=== PATIENT | female | born 2000 | race Caucasian/White ===

== ENCOUNTER 2022-12-26 09:30 | Emergency (ER) | payer OTHER, SELFPAY ==
[2022-12-26 09:42] VITALS: BP 120/86; PULSE 62; RESP 20; TEMP 37.2; O2SAT 100; BMI 20.2
--- NOTE | 2022-12-26 10:56 | ED.GENADUL1 ---
HPI - General Adult General Chief complaint: Abdominal Pain Stated complaint: ABDOMINAL PAIN Time Seen by Provider: 12/26/22 10:53 Source: patient Mode of arrival: walk-in Limitations: no limitations History of Present Illness HPI narrative: Patient is a 22-year-old female who is presenting to the Emergency Room for 4 days in a row for cyclic nausea and vomiting secondary to marijuana use. This is patient's 4th visit in 4 days. Patient has been to the Emergency Room in [place] from [facility] the past 3 days. Patient had one visit for pelvic pain, vomiting, and bad menses cramps. Patient had a pelvic ultrasound and a CT of the abdomen and pelvis during her Emergency Room visits in [place]. Pelvic ultrasound showed no evidence of torsion at this time, no acute abnormality. CT report Showed no acute abnormality, trace free fluid in the pelvic vault. Patient is presenting to the Emergency Room this morning secondary to intractable nausea, vomiting, and midepigastric discomfort. Patient smokes marijuana, patient says the last time she smoked marijuana was 6 days ago. Patient's boyfriend is at bedside as well, he smells of marijuana as does the patient. Patient has been slightly lightheaded and dizzy, no chest pain or shortness of breath. Patient's had interrmittent episodes of hyperventilating secondary to pain, nausea and vomiting. Patient denies any other illicit drug use. Patient is currently on her menses. This patient. No other acute complaints. . All systems are negative except as noted/marked. All systems reviewed and otherwise negative. . Nurses note and vital signs reviewed and patient is not hypoxic. General: The patient appears well and in no apparent distress. Patient is resting comfortably on cart. Patient is not toxic, lethargic, or listless. Skin: Warm, dry, no pallor noted. There is no rash noted. No petechiae, purpura. Head: Normocephalic, atraumatic Eye: Normal conjunctiva, no drainage, EOMI. PERRL Ears, Nose, Mouth, and Throat: oral mucosa is moist. Nares patent. Mouth without vesicles. Cardiovascular: Regular Rate and Rhythm, no murmur, gallop, rub Respiratory: Patient is in no distress, no accessory muscle use, lungs are clear to auscultation, no wheezing, rales or rhonchi Back: non-tender, no CVA tenderness bilaterally to percussion. No CT LS midline pain GI: soft, Mild midepigastric tenderness to palpation, abdomen is soft, no peritoneal signs, no flank pain bilateral, otherwise no tenderness to palpation, no masses appreciated. No rebound, guarding, or rigidity noted. No flank pain bilateral, No distention Musculoskeletal: Patient has full range of motion of all of the extremities, no motor, sensory, or focal neurological deficits Neurological: A&O x3, normal speech Psychiatric: Cooperative Related Data Home Medications Medication Instructions Recorded Confirmed capsaicin 0.025 % topical cream 1 applic topical BID 12/26/22 12/26/22 ibuprofen 600 mg tablet 600 mg PO Q8H 12/26/22 12/26/22 ondansetron 4 mg disintegrating 4 mg PO Q8H PRN nausea and vomiting 12/26/22 12/26/22 tablet promethazine 25 mg tablet 25 mg PO Q6H PRN nausea and 12/26/22 12/26/22 vomiting tramadol 50 mg tablet 50 mg PO Q6H 12/26/22 12/26/22 Previous Rx's Medication Instructions Recorded promethazine 25 mg rectal 25 mg ID Q6H PRN nausea and 12/26/22 suppository vomiting #6 ea Allergies Allergy/AdvReac Type Severity Reaction Status Date / Time No Known Drug Allergies Allergy Verified 12/26/22 09:49 PFSH PFSH Social History Smoking status: Light tobacco smoker Exam Constitutional Vital Signs, click to edit/add: Last Vital Signs Temp 98.9 F 12/26/22 09:42 Pulse 56 L 12/26/22 12:22 Resp 16 12/26/22 12:22 BP 111/56 12/26/22 12:22 Pulse Ox 98 12/26/22 12:22 O2 Del Method Room Air 12/26/22 12:22 Course Vital Signs Vital signs: Vital Signs Temperature 98.9 F 12/26/22 09:42 Pulse Rate 62 12/26/22 09:42 Respiratory Rate 20 12/26/22 09:42 Blood Pressure 120/86 12/26/22 09:42 Pulse Oximetry 100 12/26/22 09:42 Oxygen Delivery Method Room Air 12/26/22 09:42 Temperature 98.9 F 12/26/22 09:42 Pulse Rate 56 L 08/02/23 12:22 Respiratory Rate 16 12/26/22 12:22 Blood Pressure 111/56 12/26/22 12:22 Pulse Oximetry 98 12/26/22 12:22 Oxygen Delivery Method Room Air 12/26/22 12:22 Medical Decision Making MDM Narrative Medical decision making narrative: Patient was given Compazine and Zofran initially to help patient felt better, faster and also help increase fluids. There was a delay in order secondary to as waiting for paperwork to come across from [facility] Emergency Room to see what they have done a not doing, as also waiting to see if patient was going to have any vomiting in the Emergency Room which she did have a few episodes of bilious vomiting so IV, lab work, fluids and additional medication were initiated. Patient does feel better to IV fluids. Patient was given oral potassium tablet. Patient had education on marijuana abuse and cyclic nausea and vomiting. Patient will follow-up with PCP. Patient was sent home medications of Phenergan suppositories. Patient has medication of Bentyl and other medications sitting at the [facility] pharmacy that she has not picked up yet for unknown reason. Patient is intermittently using nausea medicine at home with little relief. Patient understands she needs to use her medication at home as prescribed to help prevent future return visits to the Emergency Room if possible. Patient understands she can return to Emergency Room anytime she like to, but she has multiple medications at home and manage her pain at home and manage her nausea vomiting. Patient and boyfriend were educated at length on stopping marijuana abuse. No questions at discharge. Lab Data Lab results reviewed: Yes I reviewed the patient's lab results Labs: Lab Results 12/26/22 Range/Units 10:56 WBC 5.6 (4.0-11.0) 10^3/uL RBC 4.68 (4.20-5.40) 10^6/uL Hgb 14.5 (12.0-16.0) g/dL Hct 39.7 (36.0-48.0) % MCV 84.8 (81.0-99.0) fL MCH 31.0 (26.7-34.0) pg MCHC 36.5 H (29.9-35.2) g/dL RDW 11.9 (11.0-15.0) % Plt Count 306 (150-450) 10^3/uL MPV 10.0 (9.5-13.5) fL Neut % (Auto) 78.9 H (43.0-75.0) % Lymph % (Auto) 14.3 L (20.5-60.0) % [place] % (Auto) 5.9 (1.7-12.0) % Eos % (Auto) 0.2 L (0.9-7.0) % Baso % (Auto) 0.5 (0.2-2.0) % Neut # (Auto) 4.4 (1.4-6.5) 10^3/uL Lymph # (Auto) 0.8 L (1.2-3.8) 10^3/uL [place] # (Auto) 0.3 (0.3-0.8) 10^3/uL Eos # (Auto) 0.0 (0.0-0.7) 10^3/uL Baso # (Auto) 0.0 (0.0-0.1) 10^3/uL Abs Immat Gran (auto) 0.01 (0.00-0.03) 10^3/uL Imm/Tot Granulo (auto) 0.2 (0.0-0.5) % Sodium 138 (136-145) mmol/L Potassium 3.0 L (3.5-5.1) mmol/L Chloride 101 (98-107) mmol/L Carbon Dioxide 26.0 (21.0-32.0) mmol/L Anion Gap 14.0 BUN 7.0 (7.0-18.0) mg/dL Creatinine 0.93 (0.55-1.02) mg/dL Est GFR ( Amer) >60 (>=60) Est GFR (Non-Af Amer) >60 (>=60) BUN/Creatinine Ratio 7.5 Glucose 113 H (74-106) mg/dL Lactate 1.4 (0.4-2.0) mmol/L Calcium 8.8 (8.5-10.1) mg/dL Total Bilirubin 1.4 H (0.2-1.0) mg/dL AST 22 (15-37) U/L ALT 37 (14-59) U/L Alkaline Phosphatase 51 (46-116) U/L Total Protein 7.8 (6.4-8.2) g/dL Albumin 4.8 (3.4-5.0) g/dL Globulin 3.0 g/dL Albumin/Globulin Ratio 1.6 Lipase 92.0 (73.0-393.0) U/L Serum HCG, Qual Negative (NEGATIVE) Patient's potassium was 3.0. Patient was given a oral potassium tablet that she tolerated well without difficulty. Discharge Plan Discharge Chief Complaint: Abdominal Pain Clinical Impression: Marijuana abuse, Cyclical vomiting with nausea, Mild dehydration, Hypokalemia Patient Disposition: Home, Self-Care Condition: Good Prescriptions / Home Meds: New promethazine 25 mg suppository 25 mg ID Q6H PRN (Reason: nausea and vomiting) Qty: 6 0RF No Action ibuprofen 600 mg tablet 600 mg PO Q8H ondansetron 4 mg tablet,disintegrating 4 mg PO Q8H PRN (Reason: nausea and vomiting) promethazine 25 mg tablet 25 mg PO Q6H PRN (Reason: nausea and vomiting) tramadol 50 mg tablet 50 mg PO Q6H capsaicin 0.025 % cream 1 applic TOPICAL BID Instructions: Dehydration (ED), Acute Nausea and Vomiting (ED), Cannabis Use Disorder (ED), Cyclic Vomiting Syndrome (ED) Additional Instructions: We have talked at length about cyclic nausea and vomiting, most likely secondary to marijuana smoking/abuse. This is her 4th Emergency Room visit in 4 days. Extensive testing has been reviewed from [facility]. You need to picker tender helper the prescriptions that have been prescribed to him from [facility], at [facility]. He'll be given Phenergan suppositories as well. Stop smoking marijuana, and his symptoms should resolve. gastrointestinal doctor has been referred to as well, need to follow up with them. Here potassium was 3.0,Low-normal potassium is 3.5. Take multivitamins daily, increased and Gatorade Stand Alone Forms: Portal Instructions Referrals: Physician,Non-Staff, MD [Primary Care Provider] - 1 week Discharge Date/Time: 12/26/22 13:33
[2022-12-26] MEDS: KETOROLAC TROMETHAMINE 30 MG/ML VIAL IVP (11:11)
[2022-12-26] MEDS: 0.9 % SODIUM CHLORIDE 1,000 ML 999 ML IV (11:12)
[2022-12-26] MEDS: DICYCLOMINE HCL 20 MG/2 ML VIAL IM (11:12)
[2022-12-26] MEDS: ONDANSETRON PF 4 MG/2 ML VIAL IV (11:12)
[2022-12-26 11:18] LABS: Basophils Percent Auto 0.5 % (0.2-2.0); Eosinophils Percent Auto 0.2 % (0.9-7.0); Hematocrit 39.7 % (36.0-48.0); Hemoglobin 14.5 g/dL (12.0-16.0); Immature Granulocytes Abs Auto 0.01 10^3/uL (0.00-0.03); Immature Granulocytes Pct Auto 0.2 % (0.0-0.5); Lymphocytes Absolute Auto 0.8 10^3/uL (1.2-3.8); Lymphocytes Percent Auto 14.3 % (20.5-60.0); Mean Corpuscular HGB Conc 36.5 g/dL (29.9-35.2); Mean Corpuscular Volume 84.8 fL (81.0-99.0); Monocytes Absolute Auto 0.3 10^3/uL (0.3-0.8); Monocytes Percent Auto 5.9 % (1.7-12.0); Neutrophils Absolute Auto 4.4 10^3/uL (1.4-6.5); Neutrophils Percent Auto 78.9 % (43.0-75.0); Platelet Count 306 10^3/uL (150-450); Red Blood Count 4.68 10^6/uL (4.20-5.40); Red Cell Distribution Width 11.9 % (11.0-15.0); White Blood Count 5.6 10^3/uL (4.0-11.0)
[2022-12-26] MEDS: PROCHLORPERAZINE 10 MG/2 ML VIAL IV (11:22)
[2022-12-26 11:26] LABS: Alanine Aminotransferase 37 U/L (14-59); Albumin Globulin Ratio 1.6; Albumin Level 4.8 g/dL (3.4-5.0); Alkaline Phosphatase 51 U/L (46-116); Aspartate Amino Transferase 22 U/L (15-37); BUN Creatinine Ratio 7.5; Bilirubin Total 1.4 mg/dL (0.2-1.0); Calcium 8.8 mg/dL (8.5-10.1); Chloride 101 mmol/L (98-107); Estimated GFR (African America >60 (>=60); Estimated GFR (Non-African Ame >60 (>=60); Glucose 113 mg/dL (74-106); Sodium 138 mmol/L (136-145); Total Protein 7.8 g/dL (6.4-8.2)
[2022-12-26 11:29] LABS: Lactate/Lactic Acid 1.4 mmol/L (0.4-2.0)
[2022-12-26] MEDS: POTASSIUM CHLORIDE 10 MEQ ER TABLET 40 MEQ PO (12:12)
[2022-12-26 12:19] LABS: HCG Qualitative NEGATIVE (NEGATIVE)
[2022-12-26 12:22] VITALS: BP 111/56; PULSE 56; RESP 16; O2SAT 98
[2022-12-26] MEDS: lidocaine HCL 15 ML, MAG HYDROX/ALUMINUM HYD/SIMETH 30 ML, HYOSCYAMINE SULFATE 0.25 MG PO (13:23)
== END 2022-12-26 13:33 | disposition home or self-care (01) ==
PROVIDERS: Emergency Provider Emergency Medicine
DX: R11.15 Cyclical vomiting syndrome unrelated to migraine (principal); F12.10 Cannabis abuse, uncomplicated; R11.0 Nausea; E86.0 Dehydration; E87.6 Hypokalemia; Z79.899 Other long term (current) drug therapy; F17.210 Nicotine dependence, cigarettes, uncomplicated
CPT/HCPCS: 36415; 80053; 83605; 83690; 84702; 84703; 85025; 96361; 96372; 96374; 96375; 99284; J0500

== ENCOUNTER 2023-06-16 16:18 | Emergency (ER) | payer OTHER, SELFPAY ==
[2023-06-16 16:31] VITALS: BP 117/71; PULSE 56; RESP 18; TEMP 36.7; O2SAT 97; BMI 21.6
--- NOTE | 2023-06-16 16:47 | ED.ABDPAIN1 ---
HPI - Abdominal Pain General Chief Complaint: Abdominal Pain Stated Complaint: Abdominal Pain Time Seen by Provider: 06/16/23 16:38 Source: patient Mode of arrival: walk-in Limitations: no limitations History of Present Illness HPI narrative: 23-year-old female presents to the emergency department for nausea vomiting and abdominal pain. It started this morning. No fever. LMP is now. The pain is moderate to severe and continuous. Related Data Allergies Allergy/AdvReac Type Severity Reaction Status Date / Time No Known Drug Allergies Allergy Verified 06/16/23 16:35 Review of Systems ROS Narrative A ten point review of systems is negative except as noted above. PFSH PFSH Social History Smoking status: Never smoker Exam Narrative Exam Narrative: Nurses note and vital signs reviewed and patient is not hypoxic. General: The patient appears uncomfortable Skin: Warm, dry, pallor noted. There is no rash noted. Head: Normocephalic, atraumatic Eye: Normal conjunctiva, no drainage Ears, Nose, Mouth, and Throat: oral mucosa is moist. Nares patent. Cardiovascular: Regular Rate and Rhythm Respiratory: Patient is in no distress, no accessory muscle use, lungs are clear to auscultation, no wheezing, rales or rhonchi Back: non-tender, no CVA tenderness bilaterally to percussion. GI: mild diffuse tenderness distention Musculoskeletal: The patient has no evidence of calf tenderness, no pitting edema, symmetrical pulses noted bilaterally Neurological: A&O, normal speech Psychiatric: Cooperative Constitutional Vital Signs, click to edit/add: Last Vital Signs Temp 98.0 F 06/16/23 16:31 Pulse 87 06/16/23 18:20 Resp 20 06/16/23 18:20 BP 114/73 06/16/23 18:20 Pulse Ox 99 06/16/23 18:20 O2 Del Method Room Air 06/16/23 16:31 Course Vital Signs Vital signs: Vital Signs Temperature 98.0 F 06/16/23 16:31 Pulse Rate 56 L 06/16/23 16:31 Respiratory Rate 18 06/16/23 16:31 Blood Pressure 117/71 06/16/23 16:31 Pulse Oximetry 97 06/16/23 16:31 Oxygen Delivery Method Room Air 06/16/23 16:31 Temperature 98.0 F 06/16/23 16:31 Pulse Rate 87 06/16/23 18:20 Respiratory Rate 20 06/16/23 18:20 Blood Pressure 114/73 06/16/23 18:20 Pulse Oximetry 99 06/16/23 18:20 Oxygen Delivery Method Room Air 06/16/23 16:31 MDM - Abdominal Pain MDM Narrative Medical decision making narrative: WBC is nineteen thousand. CT is ordered and pending and the patient is signed out to Dr. Rogers. Differential Diagnosis Differential diagnosis: Likely abdominal pain, acute appendicitis, constipation, gastroenteritis and small bowel obstruction Lab Data Labs: Lab Results 06/16/23 06/16/23 Range/Units 16:35 18:00 WBC 19.7 H (4.0-11.0) 10^3/uL RBC 4.42 (4.20-5.40) 10^6/uL Hgb 13.5 (12.0-16.0) g/dL Hct 38.2 (36.0-48.0) % MCV 86.4 (81.0-99.0) fL MCH 30.5 (26.7-34.0) pg MCHC 35.3 H (29.9-35.2) g/dL RDW 11.6 (11.0-15.0) % Plt Count 357 (150-450) 10^3/uL MPV 10.9 (9.5-13.5) fL Seg Neuts % (Manual) 88.0 Band Neutrophils % 4.0 (0-5) % Lymphocytes % (Manual) 2.0 L (20.5-60.0) % Monocytes % (Manual) 6.0 (1.7-12.0) % Eosinophils % (Manual) 0.0 L (0.9-7.0) % Basophils % (Manual) 0.0 L (0.2-2.0) % Neutrophils # (Manual) 17.33 H (1.4-6.5) 10^3/uL Band Neutrophils # 0.8 H (0.0-0.3) 10^3/uL Lymphocytes # (Manual) 0.39 L (1.20-3.80) 10^3/uL Monocytes # (Manual) 1.18 H (0.30-0.80) 10^3/uL Eosinophils # (Manual) 0.00 (0.00-0.70) 10^3/uL Basophils # (Manual) 0.00 (0.00-0.10) 10^3/uL Sodium 141 (136-145) mmol/L Potassium 3.1 L (3.5-5.1) mmol/L Chloride 104 (98-107) mmol/L Carbon Dioxide 17.2 L (21.0-32.0) mmol/L Anion Gap 22.9 BUN 10.0 (7.0-18.0) mg/dL Creatinine 1.42 H (0.55-1.02) mg/dL Est GFR ( Amer) 56 L (>=60) Est GFR (Non-Af Amer) 46 L (>=60) BUN/Creatinine Ratio 7.0 Glucose 182 H (74-106) mg/dL Calcium 9.5 (8.5-10.1) mg/dL Serum HCG, Qual Negative (NEGATIVE) Urine Color Lt. yellow (YELLOW) Urine Clarity Clear (CLEAR) Urine pH 6.0 (5.0-9.0) Ur Specific [place] 1.020 (1.005-1.025) Urine Protein Negative (NEG/TRACE) mg/dL Urine Glucose (UA) 100 A (NEGATIVE) mg/dL Urine Ketones >=80 A (NEGATIVE) mg/dL Urine Occult Blood Large A (NEGATIVE) Urine Nitrite Negative (NEGATIVE) Urine Bilirubin Negative (NEGATIVE) Urine Urobilinogen 0.2 (0.2-1.0) EU/dL Ur Leukocyte Esterase Negative (NEGATIVE) Urine RBC 5-10 A (0-2) #/HPF Urine WBC None seen (NONE SEEN) #/HPF Ur Squamous Epith Cells Few A (NONE/RARE) #/LPF Urine Crystals None seen (None Seen) #/HPF Urine Bacteria Trace A (NONE SEEN) #/HPF Urine Casts None seen (NONE SEEN) #/LPF Urine Mucus None seen (NONE SEEN) Ur Culture Indicated? No Discharge Plan Discharge Patient Disposition: Still a Patient
[2023-06-16 16:52] LABS: Hematocrit 38.2 % (36.0-48.0); Hemoglobin 13.5 g/dL (12.0-16.0); Mean Corpuscular HGB Conc 35.3 g/dL (29.9-35.2); Mean Corpuscular Hemoglobin 30.5 pg (26.7-34.0); Mean Corpuscular Volume 86.4 fL (81.0-99.0); Mean Platelet Volume 10.9 fL (9.5-13.5); Platelet Count 357 10^3/uL (150-450); Red Blood Count 4.42 10^6/uL (4.20-5.40); Red Cell Distribution Width 11.6 % (11.0-15.0); White Blood Count 19.7 10^3/uL (4.0-11.0)
[2023-06-16 17:00] LABS: Anion Gap 22.9; Calcium 9.5 mg/dL (8.5-10.1); Carbon Dioxide 17.2 mmol/L (21.0-32.0); Chloride 104 mmol/L (98-107); Estimated GFR (African America 56 (>=60); Estimated GFR (Non-African Ame 46 (>=60); Glucose 182 mg/dL (74-106); HCG Qualitative NEGATIVE (NEGATIVE); Potassium 3.1 mmol/L (3.5-5.1); Sodium 141 mmol/L (136-145)
[2023-06-16] MEDS: 0.9 % SODIUM CHLORIDE 1,000 ML 1000 ML IV (17:01)
[2023-06-16] MEDS: ONDANSETRON PF 4 MG/2 ML VIAL IV (17:01)
[2023-06-16 17:37] LABS: Band Neutrophils Absolute 0.8 10^3/uL (0.0-0.3); Lymphocytes Absolute Manual 0.39 10^3/uL (1.20-3.80); Monocytes Absolute Manual 1.18 10^3/uL (0.30-0.80); Segmented Neut Absolute Manual 17.33 10^3/uL (1.4-6.5)
[2023-06-16] MEDS: KETOROLAC TROMETHAMINE 30 MG/ML VIAL IVP (18:03)
--- NOTE | 2023-06-16 18:16 | CT_ITS ---
The [address] [address] Patient Name: SAMIR LUCERO MRN: [id number] date: 2000 Sex: F Assigned Patient Location: ER Current Patient Location: ER Accession/Order Number: [id number] Exam Date: 06/16/2023 18:30 Report Date: 06/16/2023 19:14 At the request of: KEITH CROWLEY Procedure: CT abdomen pelvis w con EXAM: CT abdomen pelvis w con HISTORY: generalized abdominal pain, WBC 19 . Nausea and vomiting. COMPARISON: None. TECHNIQUE: Enhanced helical acquisition obtained through the abdomen and the pelvis. FINDINGS: The visualized lung bases and pleural spaces are clear. Unremarkable gallbladder. No significant biliary ductal dilatation. The liver, spleen, pancreas, adrenal glands and the kidneys are unremarkable. No enlarged lymph nodes within the abdomen or the pelvis. Trace free fluid within the pelvis, likely physiologic. Normal appendix. CT/CT abdomen pelvis w con IMPRESSION: 1. Normal appendix. No inflammatory changes within the abdomen or the pelvis. 2. Trace free fluid within the pelvic cul-de-sac, likely physiologic. Electronically authenticated by: KAREN SIERRA Date: 06/16/2023 19:14
[2023-06-16 18:20] VITALS: BP 114/73; PULSE 87; RESP 20; O2SAT 99
[2023-06-16] MEDS: DICYCLOMINE HCL 20 MG/2 ML VIAL IM (18:30)
[2023-06-16 18:35] LABS: Bilirubin Urine NEGATIVE (NEGATIVE); Blood Urine LARGE (NEGATIVE); Clarity Urine CLEAR (CLEAR); Color Urine LT. YELLOW (YELLOW); Glucose Urine UA 100 mg/dL (NEGATIVE); Ketones Urine >=80 mg/dL (NEGATIVE); Leukocyte Esterase Urine NEGATIVE (NEGATIVE); Nitrite Urine NEGATIVE (NEGATIVE); Protein Urine NEGATIVE (NEG/TRACE); Urobilinogen Urine 0.2 EU/dL (0.2-1.0)
[2023-06-16 18:38] LABS: Urine Microscopic Indicated YES
[2023-06-16 18:42] LABS: Bacteria Urine TRACE #/HPF (NONE SEEN); Cast Seen? NONE SEEN #/LPF (NONE SEEN); Crystals Seen? None Seen #/HPF (None Seen); Mucus Urine NONE SEEN (NONE SEEN); Squamous Epithelial Cell Urine FEW #/LPF (NONE/RARE); Urine Culture Indicated NO; WBC Urine NONE SEEN #/HPF (NONE SEEN)
[2023-06-16 19:34] VITALS: BP 123/74; PULSE 62; RESP 16; O2SAT 99
[2023-06-16] MEDS: METOCLOPRAMIDE HCL 10 MG/2 ML VIAL IVP (20:02)
[2023-06-16] MEDS: DIPHENHYDRAMINE HCL 50 MG/ML (1ML) VIAL IV (20:02)
[2023-06-16] MEDS: 0.9 % SODIUM CHLORIDE 1,000 ML 999 ML IV (20:03)
[2023-06-16 21:06] VITALS: BP 94/51; PULSE 66; RESP 14; O2SAT 98
[2023-06-16] MEDS: ONDANSETRON 4 MG RAPDIS TABLET SL (21:30)
== END 2023-06-16 21:33 | disposition home or self-care (01) ==
PROVIDERS: Emergency Medicine; Emergency Provider Internal Medicine
DX: R11.15 Cyclical vomiting syndrome unrelated to migraine (principal); F12.90 Cannabis use, unspecified, uncomplicated
CPT/HCPCS: 36415; 74177; 80048; 81001; 84703; 85007; 85027; 96361; 96372; 96374; 96375; 99285; J0500; J1200; J1885; J2405; J2765; Q0162; Q9967

== ENCOUNTER 2023-06-18 08:48 | Observation (INO) | payer OTHER, SELFPAY ==
[2023-06-18] VITALS (8 sets, daily range): BP systolic 100–137; BP diastolic 57–77; PULSE 55–94; RESP 16–20; TEMP 36.4–37.2; O2SAT 97; BMI 21.6; BMI 21.9
--- OUTSIDE RECORDS SUMMARY | 2023-06-18 08:57 | XMS_ITS | CCD ---
Author Name Unknown Address [address] [place] [address] [address] [place] [id number] Organization [facility] Care Team Providers Care Tobacco Wetter Name Role Phone PAY, DR STATON Attending Unavailable PAY, DR STATON Admitting Unavailable REQUEST, DR NAVA LISTED Primary Care Unavaila ble Problems Problem Classification Problem Date Documented Da te Episodic/Chronic Residual codes; unclassified (4 sources) Procedure and treatment not carried out due to patient leaving prior to being seen by health care provider; Translations: [PROC AND TX NOT CARRIED OUT PT LEAVE] Onset: 01-15-2022 Episodic Encounters Encounter Date Encounter Type Care Provider Facility Start: 01-15-2022 End: 01-15-[address] STATON PAY Facility: Payers Date Payer Category Payer Unknown [id number] 1959 Unknown [id number] Summary Purpose Family History No Family History Records Found Advance Directives No Advanced Directives Records Found Additional Source Comments INFORMATION SOURCE (unrecogn ized section and content) DATE CREATED AUTHOR 01/19/2022 [facility] FOR RECORDS PERTAINING TO PATIENTS WHO ARE OR HAVE BEEN ENROLLED IN A CHEMICAL DEPENDENCY/SUBSTANCEABUSE PROGRAM, SOME INFORMATION MAY BE OMITTED. This clinical summary was aggregated from multiple sources. Caution should be exercised in using it in the provision of clinical care. This summary normalizes information from multiple sources, and as a consequence, information in this document may materially change the coding, format and clinical context of patient data. In addition, data may be omitted in some cases. CLINICAL DECISIONS SHOULD BE BASED ON THE PRIMARY CLINICAL RECORDS. [facility] [employer] [facility]. provides no warranty or guarantee of the accuracy or completeness of information in this document.
[2023-06-18] MEDS: METOCLOPRAMIDE HCL 10 MG/2 ML VIAL IVP (09:16)
[2023-06-18] MEDS: 0.9 % SODIUM CHLORIDE 1,000 ML 999 ML IV (09:16)
[2023-06-18] MEDS: HALOPERIDOL LACTATE 5 MG/ML VIAL IV (09:16)
[2023-06-18] MEDS: ONDANSETRON PF 4 MG/2 ML VIAL IV (09:16)
[2023-06-18] MEDS: HYOSCYAMINE SULFATE 0.125 MG TAB.SUBL SL (09:17)
[2023-06-18 09:30] LABS: Basophils Percent Auto 0.7 % (0.2-2.0); Eosinophils Absolute Auto 0.1 10^3/uL (0.0-0.7); Hematocrit 37.8 % (36.0-48.0); Hemoglobin 13.2 g/dL (12.0-16.0); Immature Granulocytes Abs Auto 0.01 10^3/uL (0.00-0.03); Immature Granulocytes Pct Auto 0.2 % (0.0-0.5); Lymphocytes Absolute Auto 1.6 10^3/uL (1.2-3.8); Mean Corpuscular HGB Conc 34.9 g/dL (29.9-35.2); Mean Corpuscular Hemoglobin 30.6 pg (26.7-34.0); Mean Corpuscular Volume 87.5 fL (81.0-99.0); Monocytes Absolute Auto 0.3 10^3/uL (0.3-0.8); Monocytes Percent Auto 5.7 % (1.7-12.0); Neutrophils Absolute Auto 3.7 10^3/uL (1.4-6.5); Neutrophils Percent Auto 64.4 % (43.0-75.0); Platelet Count 277 10^3/uL (150-450); Red Blood Count 4.32 10^6/uL (4.20-5.40); Red Cell Distribution Width 11.8 % (11.0-15.0); White Blood Count 5.8 10^3/uL (4.0-11.0)
[2023-06-18 09:34] LABS: Alanine Aminotransferase 33 U/L (14-59); Albumin Globulin Ratio 1.3; Albumin Level 4.2 g/dL (3.4-5.0); Alkaline Phosphatase 44 U/L (46-116); Anion Gap 20.9; Aspartate Amino Transferase 33 U/L (15-37); BUN Creatinine Ratio 7.2; Bilirubin Total 1.1 mg/dL (0.2-1.0); Calcium 8.9 mg/dL (8.5-10.1); Carbon Dioxide 17.8 mmol/L (21.0-32.0); Chloride 102 mmol/L (98-107); Estimated GFR (African America >60 (>=60); Estimated GFR (Non-African Ame >60 (>=60); Globulin 3.2 g/dL; Glucose 126 mg/dL (74-106); Sodium 138 mmol/L (136-145); Total Protein 7.4 g/dL (6.4-8.2)
[2023-06-18 09:37] LABS: Potassium 2.7 mmol/L (3.5-5.1)
--- NOTE | 2023-06-18 09:41 | ED_ITS ---
HPI - General Adult General Chief complaint: Nausea/Vomiting/Diarrhea Stated complaint: vomiting Time Seen by Provider: 06/18/23 08:55 Source: patient Mode of arrival: walk-in History of Present Illness HPI narrative: Patient returns complaining on nausea, vomiting and mid abdominal pain. She was evaluated 2 days ago for similar, had elevated WBC and low K, negative abd/pelvic CT and flt better and wanted to be discharged home. She now states that her pain and vomiting are worse. 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 Related Data Home Medications Medication Instructions Recorded Confirmed No Known Home Medications 06/16/23 06/18/23 Allergies Allergy/AdvReac Type Severity Reaction Status Date / Time No Known Drug Allergies Allergy Verified 06/16/23 16:35 [facility] Medical History (Updated 06/18/23 @ 12:28 by Stormy Rogers) Ovarian cyst rupture ?N83.209 - Unspecified ovarian cyst, unspecified side (ICD-10) Family History (Updated 06/18/23 @ 12:29 by Stormy Rogers) Grandmother Family history of cancer Family history of hypertension Social History Smoking status: Never smoker Highest level of school completed/degree received: Bachelor's degree Do you think of yourself as: straight/heterosexual Gender Identity: female Exam Narrative Exam Narrative: Nurses notes and vital signs reviewed and patient is not hypoxic. afebrile General: uncomfortable. Skin: Warm, dry, no pallor noted. No rash. Head: Normocephalic, atraumatic. Neck: Supple, non-tender. No meningismus Eye: Pupils are equal, round and EOMI. No scleral icterus. Ears, Nose, Mouth, and Throat: Oral mucosa is dry Cardiovascular: Regular Rate and Rhythm without murmur, gallop or rub. Respiratory: No accessory muscle use or respiratory distress. Lungs are clear to auscultation, no wheezing, rales or rhonchi Back: No CVA tenderness Musculoskeletal: normal ROM, no calf or popliteal tenderness, no lower extremity edema/swelling GI: Abdomen is soft, non-distended. Normal bowel sounds. No masses apprecia ashutosh. No tenderness to palpation. No rebound, guarding, or rigidity noted. Neurological: A&O x4. No cranial nerve dysfunction observed. No truncal ataxia. Moves all extremities. Sensation intact. Psychiatric: Cooperative and interactive. Normal mood and affect. Constitutional Vital Signs, click to edit/add: Last Vital Signs Temp 98.2 F 06/18/23 12:05 Pulse 56 L 06/18/23 12:05 Resp 18 06/18/23 12:05 BP 117/73 06/18/23 12:05 Pulse Ox 97 06/18/23 12:05 O2 Del Method Room Air 06/18/23 12:05 Course Vital Signs Vital signs: Vital Signs Temperature 97.6 F 06/18/23 08:51 Pulse Rate 68 06/18/23 08:51 Respiratory Rate 20 06/18/23 08:51 Blood Pressure 137/77 06/18/23 08:51 Pulse Oximetry 97 06/18/23 08:51 Oxygen Delivery Method Room Air 06/18/23 08:51 Temperature 98.2 F 06/18/23 12:05 Pulse Rate 56 L 06/18/23 12:05 Respiratory Rate 18 06/18/23 12:05 Blood Pressure 117/73 06/18/23 12:05 Pulse Oximetry 97 06/18/23 12:05 Oxygen Delivery Method Room Air 06/18/23 12:05 Medical Decision Making MDM Narrative Medical decision making narrative: Peripheral IV established blood drawn and sent for testing. Her test the other day was negative and was not repeated. CT scan is also not repeated. She was ordered to receive normal saline IV fluid, IV Haldol, IV Reglan and IV Zofran. Her white blood cell count normalized. Potassium decreased further and is now 2.7. Bicarb once again low. Large blood as well as moderate bacteria and 2- 5WBCs. Remainder of her blood tests were normal. The patient felt decreased nausea, decreased abdominal pain after emergency department treatment. The patient was given oral potassium and a 2nd liter of NS IVF. She was given IV Cipro for her UTI. I talked with her about her lab results, diagnosis and possible tie-in between her symptoms and her THC use. She still had significant nausea and pain that - although improved - made her concerned about out-patient treatment since she had been maintaining clear liquid diet and taking meds but continued to vomit. Call placed to check writer salesperson admitting physician. Dr Fry and I discussed the patient's condition, out-patient failed therapy and observation admission, to which he is agreeable. Patient admitted to [facility]. Lab Data Lab results reviewed: Yes I reviewed the patient's lab results Labs: Lab Results 06/18/23 06/18/23 Range/Units 09:08 09:23 WBC 5.8 (4.0-11.0) 10^3/uL RBC 4.32 (4.20-5.40) 10^6/uL Hgb 13.2 (12.0-16.0) g/dL Hct 37.8 (36.0-48.0) % MCV 87.5 (81.0-99.0) fL MCH 30.6 (26.7-34.0) pg MCHC 34.9 (29.9-35.2) g/dL RDW 11.8 (11.0-15.0) % Plt Count 277 (150-450) 10^3/uL MPV 11.0 (9.5-13.5) fL Neut % (Auto) 64.4 (43.0-75.0) % Lymph % (Auto) 28.0 (20.5-60.0) % [place] % (Auto) 5.7 (1.7-12.0) % Eos % (Auto) 1.0 (0.9-7.0) % Baso % (Auto) 0.7 (0.2-2.0) % Neut # (Auto) 3.7 (1.4-6.5) 10^3/uL Lymph # (Auto) 1.6 (1.2-3.8) 10^3/uL [place] # (Auto) 0.3 (0.3-0.8) 10^3/uL Eos # (Auto) 0.1 (0.0-0.7) 10^3/uL Baso # (Auto) 0.0 (0.0-0.1) 10^3/uL Abs Immat Gran (auto) 0.01 (0.00-0.03) 10^3/uL Imm/Tot Granulo (auto) 0.2 (0.0-0.5) % Sodium 138 (136-145) mmol/L Potassium 2.7 L* (3.5-5.1) mmol/L Chloride 102 (98-107) mmol/L Carbon Dioxide 17.8 L (21.0-32.0) mmol/L Anion Gap 20.9 BUN 8.0 (7.0-18.0) mg/dL Creatinine 1.11 H (0.55-1.02) mg/dL Est GFR ( Amer) >60 (>=60) Est GFR (Non-Af Amer) >60 (>=60) BUN/Creatinine Ratio 7.2 Glucose 126 H (74-106) mg/dL Calcium 8.9 (8.5-10.1) mg/dL Total Bilirubin 1.1 H (0.2-1.0) mg/dL AST 33 (15-37) U/L ALT 33 (14-59) U/L Alkaline Phosphatase 44 L (46-116) U/L Total Protein 7.4 (6.4-8.2) g/dL Albumin 4.2 (3.4-5.0) g/dL Globulin 3.2 g/dL Albumin/Globulin Ratio 1.3 Lipase 26.0 (16.0-77.0) U/L Urine Color Lt. yellow (YELLOW) Urine Clarity Clear (CLEAR) Urine pH 6.0 (5.0-9.0) Ur Specific [place] >=1.030 A (1.005-1.025) Urine Protein Trace (NEG/TRACE) mg/dL Urine Glucose (UA) Negative (NEGATIVE) mg/dL Urine Ketones >=80 A (NEGATIVE) mg/dL Urine Occult Blood Large A (NEGATIVE) Urine Nitrite Negative (NEGATIVE) Urine Bilirubin Negative (NEGATIVE) Urine Urobilinogen 0.2 (0.2-1.0) EU/dL Ur Leukocyte Esterase Negative (NEGATIVE) Urine RBC 20-50 A (0-2) #/HPF Urine WBC 2-5 A (NONE SEEN) #/HPF Ur Squamous Epith Cells Few A (NONE/RARE) #/LPF Urine Crystals None seen (None Seen) #/HPF Urine Bacteria Moderate A (NONE SEEN) #/HPF Urine Casts None seen (NONE SEEN) #/LPF Urine Mucus None seen (NONE SEEN) Ur Culture Indicated? Yes Discharge Plan Discharge Chief Complaint: Nausea/Vomiting/Diarrhea Clinical Impression: Marijuana abuse, Cyclical vomiting with nausea, Mild dehydration, Abdominal pain, Hypokalemia Patient Disposition: Admitted as Observation Time of Disposition Decision: 10:15 Discharge Date/Time: 06/18/23 11:38
[2023-06-18 09:49] LABS: Bilirubin Urine NEGATIVE (NEGATIVE); Blood Urine LARGE (NEGATIVE); Clarity Urine CLEAR (CLEAR); Color Urine LT. YELLOW (YELLOW); Glucose Urine UA NEGATIVE (NEGATIVE); Ketones Urine >=80 mg/dL (NEGATIVE); Leukocyte Esterase Urine NEGATIVE (NEGATIVE); Nitrite Urine NEGATIVE (NEGATIVE); Protein Urine TRACE mg/dL (NEG/TRACE); Specific Gravity Urine >=1.030 (1.005-1.025); Urobilinogen Urine 0.2 EU/dL (0.2-1.0)
[2023-06-18 09:54] LABS: Urine Microscopic Indicated YES
[2023-06-18] MEDS: POTASSIUM CHLORIDE 10 MEQ ER TABLET 40 MEQ PO ×2 (09:55→14:27)
[2023-06-18] MEDS: 0.9 % SODIUM CHLORIDE 1,000 ML 1000 ML IV (09:56)
[2023-06-18 09:57] LABS: Bacteria Urine MODERATE #/HPF (NONE SEEN); Cast Seen? NONE SEEN #/LPF (NONE SEEN); Crystals Seen? None Seen #/HPF (None Seen); Mucus Urine NONE SEEN (NONE SEEN); RBC Urine 20-50 #/HPF (0-2); Squamous Epithelial Cell Urine FEW #/LPF (NONE/RARE); Urine Culture Indicated YES
--- OUTSIDE RECORDS SUMMARY | 2023-06-18 11:48 | XMS_ITS | CCD ---
Author Name Unknown Address [address] [place] [address] [address] [place] [id number] Organization [facility] Care Team Providers Care Polysom Tech Name Role Phone PAY, DR STAOTN Attending Unavailable PAY, DR STATON Admitting Unavailable [...] Facility: Payers Date Payer Category Payer Unknown [id number] 1959 Unknown [id number] Summary Purpose Family History No Family History Records Found Advance Directives No Advanced Directives Records Found Additional Source Comments INFORMATION SOURCE (unrecogn ized section and content) DATE CREATED AUTHOR 01/19/[address] [facility] FOR RECORDS PERTAINING TO PATIENTS WHO ARE [...] BE BASED ON THE PRIMARY CLINICAL RECORDS. [facility] [employer] [facility]. provides no warranty or guarantee of the accuracy or completeness of information in this document.
[2023-06-18] MEDS: CEFTRIAXONE 1,000 MG in 0.9 % SODIUM CHLORIDE 50 ML 100 MG IV (14:27)
[2023-06-18] MEDS: LACTATED RINGER'S SOLUTION 1,000 ML 125 ML IV (15:23)
[2023-06-18] MEDS: POTASSIUM CHLORIDE 40 MEQ in 0.9 % SODIUM CHLORIDE 250 ML 67.5 MEQ IV (15:23)
--- NOTE | 2023-06-18 16:13 | P.HP_ITS ---
<Statement entered by Cristofer Fry MD - 06/18/23 16:56> Patient not seen personally but seen by [employer]PERVISOR. Presented with uncontrolled nausea and emesis. Daily THC use. Not able to control symptoms and admitted. Replacing potassium. UA with UTI and on antibiotics. Diagnosis: 1. Cyclic vomiting syndrome 2. Marijuana abuse 3. Hypokalemia 4. UTI H&P: HPI History of Present Illness Chief complaint: vomiting Narrative: 06/18/23 This is a 23-year-old female patient with a benign past medical history, who presented to the ED today complaining of persistent nausea and vomiting with abdominal cramping for the last 3 days. She was seen in the ED 2 days ago and was given IV fluids and antiemetics and discharged home. She reports that her nausea returned and has been unrelenting and she has not been able to keep down any food for more than 24 hours. She admits to a daily use of marijuana. She describes her abdominal cramping as severe and is relieved with hot showers. She also notes onset of diarrhea 48 hours ago. Workup in the ED revealed hypokalemia on labs and a UTI. A CT of the abdomen was obtained 48 hours ago with no acute findings and was not repeated today. As the patient was dehydrated and is believed to be suffering from cannabis hyperemesis syndrome, she is being admitted to observation by the hospitalist service for further hydration, antiemetics, and antibiotics for her UTI. At the time of my exam the patient was resting pretty comfortably without e vidence of nausea and vomiting but persistent cramping reported. She has been advised that the only cure for this is complete cessation of marijuana use and she verbalizes understanding. She was also made aware that it could take up to a month for the symptoms to resolve and she may not have resolution by the time of discharge. Review of Systems ROS Status of ROS 10 or more systems reviewed and unremark able except as noted in history and below [facility] Medical History (Updated 06/18/23 @ 16:25 by Galina Sauer NP) Ovarian cyst rupture ?N83.209 - Unspecified ovarian cyst, unspecified side (ICD-10) Family History (Updated 06/18/23 @ 12:29 by Stormy Rogers) Grandmother Family history of cancer Family history of hypertension Social History Smoking status: Never smoker Highest level of school completed/degree received: Bachelor's degree Do you think of yourself as: straight/heterosexual Gender Identity: female Meds Home Medications and Allergies Home Medications Medication Instructions Recorded Confirmed Type No Known Home Medications 06/16/23 06/18/23 History Allergies Allergy/AdvReac Type Severity Reaction Status Date / Time No Known Drug Allergies Allergy Verified 06/16/23 16:35 Exam Constitutional Vital Signs, click to edit/add: Last Vital Signs Temp 98.9 F 06/18/23 13:41 Pulse 56 L 06/18/23 13:41 Resp 18 06/18/23 13:41 BP 108/57 06/18/23 13:41 Pulse Ox 97 06/18/23 13:41 O2 Del Method Room Air 06/18/23 13:41 Common normals: no apparent distress, oriented x3, alert and well nourished General appearance: cooperative Orientation/consciousness: Yes awake HENMT Common normals: normocephalic, head/scalp atraumatic, hearing grossly normal bilaterally, external nose normal and moist oral mucous membranes Eye Common normals: PERRL, EOMs intact bilaterally, conjunctivae normal and no scleral icterus Alignment: alignment normal Eyelid: eyelids normal Neck & C-Spine Common normals: full ROM, supple and no JVD Chest Common normals: inspection of chest normal Chest: symmetrical chest wall rise Respiratory Common normals: normal respiratory effort, no retractions, no use of accessory muscles and clear to auscultation bilaterally Effort & inspection: able to speak in complete sentences Cardio Common normals: no JVD, regular rate, regular rhythm, S1 normal heart sound, S2 normal heart sound, no gallops, no clicks, no murmurs, no rub and peripheral pulses 2+ throughout GI Common normals: Normal to inspection, nondistended, normoactive bowel sounds present, soft to palpation, no hepatosplenomegaly, no masses and no bruits Palpation: tender (Diffuse, no foci of tenderness) Bladder/kidney exam: bladder normal to palpation Back & Pelvis Common normals: thoracic and lumbar spine normal to inspection Extremity Common normals: normal capillary refill and no pedal edema General: normal exam except as noted; no clubbing and no cyanosis Neuro Petey Coma Scale: GCS not evaluated Common normals: CN's II-XII intact bilaterally, moves all extremities, no focal motor deficits and no sensory deficits noted Speech: speech normal Motor exam: strength 5/5 throughout Psych Common normals: mental status grossly normal, thought process normal, affect normal and activity/motor behavior normal Results Labs Labs: Short CBC 06/18/23 Range/Units 09:08 WBC 5.8 (4.0-11.0) 10^3/uL Hgb 13.2 (12.0-16.0) g/dL Hct 37.8 (36.0-48.0) % Plt Count 277 (150-450) 10^3/uL BMP 06/18/23 09:08 Sodium 138 Potassium 2.7 L* Chloride 102 Carbon Dioxide 17.8 L BUN 8.0 Creatinine 1.11 H Glucose 126 H Calcium 8.9 Liver Function 06/18/23 Range/Units 09:08 Total Bilirubin 1.1 H (0.2-1.0) mg/dL AST 33 (15-37) U/L ALT 33 (14-59) U/L Alkaline Phosphatase 44 L (46-116) U/L Albumin 4.2 (3.4-5.0) g/dL Urine 06/18/23 Range/Units 09:23 Urine Color Lt. yellow (YELLOW) Urine Clarity Clear (CLEAR) Urine pH 6.0 (5.0-9.0) Ur Specific [place] >=1.030 A (1.005-1.025) Urine Protein Trace (NEG/TRACE) mg/dL Urine Glucose (UA) Negative (NEGATIVE) mg/dL Pulse Oximetry Attestation: I have reviewed the pertinent pulse oximetry results. Assessment and Plan Assessment and Plan (1) Cannabis hyperemesis syndrome concurrent with and due to cannabis abuse: Assessment and Plan: ACUTE * Adm observation * Haldol, Reglan IVP x 1 * PRN IV Zofran * Capsaicin cream QID to abdomen * LR at 125/hr * Cannabis use cessation advised (2) Hypokalemia: Assessment and Plan: ACUTE * K+ 2.7 in ED * 2/2 GI losses from vomiting * KCL 40 meq PO given in ED * Give additional 40 MEQ PO plus 40 MEQ IVPB * Tele monitoring * Repeat CMP and mag in AM - replete as needed (3) Mild dehydration: Assessment and Plan: ACUTE * IVF as above (4) UTI (urinary tract infection): Assessment and Plan: ACUTE * IVPB Rocephin daily * Ur C&S pending Plan Likely DC in AM unless hypokalemia is persistent and severe
[2023-06-18] MEDS: CAPSAICIN 0.025% CREAM 60 GM TUBE 1 APPLIC TOPICAL (17:28)
[2023-06-18] MEDS: ENOXAPARIN SODIUM 40 MG/0.4 ML SYRINGE SUBQ (17:33)
[2023-06-18] MEDS: L. ACIDOPHILUS/L.BULGARICUS 1 PACKET GRAN.PACK PO (20:38)
[2023-06-19] VITALS (7 sets, daily range): BP systolic 95; BP diastolic 51; PULSE 49–72; RESP 15–16; TEMP 37; O2SAT 95
[2023-06-19] MEDS: LACTATED RINGER'S SOLUTION 1,000 ML 125 ML IV ×2 (01:30→08:12)
[2023-06-19 04:48] LABS: Basophils Percent Auto 0.7 % (0.2-2.0); Eosinophils Percent Auto 0.2 % (0.9-7.0); Hematocrit 33.5 % (36.0-48.0); Hemoglobin 11.5 g/dL (12.0-16.0); Immature Granulocytes Abs Auto 0.02 10^3/uL (0.00-0.03); Immature Granulocytes Pct Auto 0.4 % (0.0-0.5); Lymphocytes Absolute Auto 1.3 10^3/uL (1.2-3.8); Lymphocytes Percent Auto 23.7 % (20.5-60.0); Mean Corpuscular HGB Conc 34.3 g/dL (29.9-35.2); Mean Corpuscular Hemoglobin 30.4 pg (26.7-34.0); Mean Corpuscular Volume 88.6 fL (81.0-99.0); Monocytes Absolute Auto 0.3 10^3/uL (0.3-0.8); Monocytes Percent Auto 5.8 % (1.7-12.0); Neutrophils Absolute Auto 3.9 10^3/uL (1.4-6.5); Neutrophils Percent Auto 69.2 % (43.0-75.0); Platelet Count 223 10^3/uL (150-450); Red Blood Count 3.78 10^6/uL (4.20-5.40); Red Cell Distribution Width 11.9 % (11.0-15.0); White Blood Count 5.7 10^3/uL (4.0-11.0)
[2023-06-19 05:04] LABS: Alanine Aminotransferase 26 U/L (14-59); Albumin Globulin Ratio 1.1; Albumin Level 3.2 g/dL (3.4-5.0); Alkaline Phosphatase 39 U/L (46-116); Anion Gap 11.1; Aspartate Amino Transferase 20 U/L (15-37); Bilirubin Total 0.8 mg/dL (0.2-1.0); Calcium 8.2 mg/dL (8.5-10.1); Carbon Dioxide 25.8 mmol/L (21.0-32.0); Chloride 107 mmol/L (98-107); Estimated GFR (African America >60 (>=60); Estimated GFR (Non-African Ame >60 (>=60); Globulin 2.9 g/dL; Glucose 99 mg/dL (74-106); Magnesium 1.8 mg/dL (1.8-2.4); Potassium 3.9 mmol/L (3.5-5.1); Sodium 140 mmol/L (136-145); Total Protein 6.1 g/dL (6.4-8.2)
[2023-06-19] MEDS: L. ACIDOPHILUS/L.BULGARICUS 1 PACKET GRAN.PACK PO (08:12)
--- NOTE | 2023-06-19 09:20 | P.DS_ITS ---
<Statement entered by Cristofer Fry MD - 06/19/23 19:35> Patient seen and examined, agree with assessment and plan below. Presented with nausea and vomiting related to daily THC use. Improved with IV fluids. UA showed UTI and on rocephin. No further symptoms and discharged home. Will treat UTI with bactrim. Diagnosis: 1. Cyclic vomiting syndrome 2. THC abuse 3. Hyopkalemia 4. UTI DS: Providers Provider Date of admission: 06/18/23 11:41 Primary care physician: Non-Staff Physician, Discharging clinician: Galina Sauer DS: Diagnosis Discharge Diagnosis (1) Cannabis hyperemesis syndrome concurrent with and due to cannabis abuse: (2) Hypokalemia: (3) Mild dehydration: (4) UTI (urinary tract infection): DS: Summary Hospital Course Hospital Course: The patient was admitted with cannabis hyperemesis syndrome from chronic daily use of marijuana, hypokalemia, dehydration, and a UTI. She was treated with IV Haldol and Reglan x 1 and as needed Zofran IV push. She was also given capsaicin 4 times a day to be applied to her abdomen. She was treated with IV fluids for dehydration and given supplemental KCl for hypokalemia. Her UTI was treated with IVPB Rocephin. A urine culture was still pending at the time of discharge. Her abdominal pain and vomiting have completely resolved by the time of discharge. Her hypokalemia had resolved on a.m. labs and her clinical dehydration is resolved. She is tolerating her diet well. She also is experiencing some diarrhea, but a C. difficile toxin test was negative. As her symptoms have almost completely resolved she is being discharged home in stable condition. She has been prescribed Bactrim for UTI (per her insurance formulary coverage) to complete a 5 day course, and OTC capsaicin. Complete marijuana cessation has been advised and she was informed that should she use marijuana she may have resumption of symptoms. The patient does not have a PCP but a list of providers accepting new patients was provided. She has been advised to follow-up with her PCP as soon as possible. Status at Discharge Functional status at discharge: independent ambulation Overall status at discharge: patient is progressing back to baseline Time Spent with Patient Time attestation: Total time spent providing and/or coordinating discharge services: Time spent: greater than 30 minutes Specific discharge activities: Physical exam, discussion of discharge plan, questions answered. Exam Constitutional Vital Signs, click to edit/add: Last Vital Signs Temp 98.6 F 06/19/23 04:36 Pulse 66 06/19/23 07:59 Resp 15 06/19/23 07:38 BP 95/51 06/19/23 04:36 Pulse Ox 95 06/19/23 04:36 O2 Del Method Room Air 06/19/23 04:36 Common normals: no apparent distress, oriented x3 and alert General appearance: cooperative Orientation/consciousness: Yes awake HENMT Common normals: normocephalic and head/scalp atraumatic Eye Common normals: PERRL, EOMs intact bilaterally, conjunctivae normal and no scleral icterus Neck & C-Spine Common normals: no JVD Respiratory Common normals: normal respiratory effort, no use of accessory muscles and clear to auscultation bilaterally Effort & inspection: able to speak in complete sentences and symmetric chest movement Cardio Common normals: no JVD, regular rate, regular rhythm, S1 normal heart sound, S2 normal heart sound, no murmurs and peripheral pulses 2+ throughout GI Common normals: Normal to inspection, nondistended, normoactive bowel sounds present and soft to palpation Palpation: tender (very mild, diffuse. Improved) Bladder/kidney exam: bladder normal to palpation Extremity Common normals: normal to inspection, full ROM, normal capillary refill and no pedal edema General: no clubbing and no cyanosis Neuro Common normals: moves all extremities, no focal motor deficits and no sensory deficits noted Speech: speech normal Psych Common normals: mental status grossly normal and activity/motor behavior normal DS: Data Data Completed and Pending Labs on day of discharge: Labs from last 24 hours 06/19/23 06/18/23 06/18/23 04:25 09:23 09:08 WBC 5.7 5.8 RBC 3.78 L 4.32 Hgb 11.5 L 13.2 Hct 33.5 L 37.8 MCV 88.6 87.5 MCH 30.4 30.6 MCHC 34.3 34.9 RDW 11.9 11.8 Plt Count 223 277 MPV 11.0 11.0 Neut % (Auto) 69.2 64.4 Lymph % (Auto) 23.7 28.0 [place] % (Auto) 5.8 5.7 Eos % (Auto) 0.2 L 1.0 Baso % (Auto) 0.7 0.7 Neut # (Auto) 3.9 3.7 Lymph # (Auto) 1.3 1.6 [place] # (Auto) 0.3 0.3 Eos # (Auto) 0.0 0.1 Baso # (Auto) 0.0 0.0 Abs Immat Gran (auto) 0.02 0.01 Imm/Tot Granulo (auto) 0.4 0.2 Sodium 140 138 Potassium 3.9 2.7 L* Chloride 107 102 Carbon Dioxide 25.8 17.8 L Anion Gap 11.1 20.9 BUN 4.0 L 8.0 Creatinine 0.80 1.11 H Est GFR ( Amer) >60 >60 Est GFR (Non-Af Amer) >60 >60 BUN/Creatinine Ratio 5.0 7.2 Glucose 99 126 H Calcium 8.2 L 8.9 Magnesium 1.8 Total Bilirubin 0.8 1.1 H AST 20 33 ALT 26 33 Alkaline Phosphatase 39 L 44 L Total Protein 6.1 L 7.4 Albumin 3.2 L 4.2 Globulin 2.9 3.2 Albumin/Globulin Ratio 1.1 1.3 Lipase 26.0 Urine Color Lt. yellow Urine Clarity Clear Urine pH 6.0 Ur Specific [place] >=1.030 A Urine Protein Trace Urine Glucose (UA) Negative Urine Ketones >=80 A Urine Occult Blood Large A Urine Nitrite Negative Urine Bilirubin Negative Urine Urobilinogen 0.2 Ur Leukocyte Esterase Negative Urine RBC 20-50 A Urine WBC 2-5 A Ur Squamous Epith Cells Few A Urine Crystals None seen Urine Bacteria Moderate A Urine Casts None seen Urine Mucus None seen Ur Culture Indicated? Yes Discharge Plan Discharge Disposition: Home, Self-Care Discharge Medications: New sulfamethoxazole-trimethoprim [Bactrim DS] 800-160 mg tablet 1 tab PO BID 4 Days Qty: 8 0RF capsaicin 0.025 % cream 1 applic topical QID PRN (Reason: pain) Qty: 60 0RF Rx Instructions: do not wash area for at least 30 min after application No Action No Known Home Medications Activity: increase activity as tolerated Diet: advance to your usual diet Patient Instructions: Sulfamethoxazole/Trimethoprim (By mouth) (Bactrim, Bactrim DS,..., Urinary Tract Infection in Women (DC), Acute Abdominal Pain (DC), Cannabis Use Disorder (DC) Activity Restrictions/Additional Instructions: - Avoid all forms of marijuana/THC Forms: Portal Instructions Follow Up Appointments: @ 10am with Dr. Lavelle Guo [facility] [phone] *bring insurance card and photo ID to appt.* Discharge Date/Time: 06/19/23 11:52
[2023-06-19 10:43] LABS: C. Difficile PCR NEGATIVE (NEGATIVE)
--- NOTE | 2023-06-19 11:40 | CM.NOTE ---
Rounds made with Dr. Fry, pt will discharge to home today. Pt feeling much better and denies any nausea or vomiting. Pt denies any abdominal pain.
[2023-06-19] MEDS: CAPSAICIN 0.025% CREAM 60 GM TUBE 1 APPLIC TOPICAL (11:41)
--- NOTE | 2023-06-25 11:22 | CM.DCFOLLOWU ---
2nd attempt discharge follow up call made by Lupe Kendall on 06/25/23, no answer
== END 2023-06-19 11:52 | disposition home or self-care (01) ==
LOC: ER 10:15 → MS 11:45
PROVIDERS: Admitting Provider Family Medicine; Emergency Provider Emergency Medicine; Visit Provider Nurse Practitioner
DX: R11.15 Cyclical vomiting syndrome unrelated to migraine (principal); F12.10 Cannabis abuse, uncomplicated; E87.6 Hypokalemia; N39.0 Urinary tract infection, site not specified; E86.0 Dehydration; B96.20 Unspecified Escherichia coli [E. coli] as the cause of diseases classified elsewhere
CPT/HCPCS: 36415; 80053; 81001; 83690; 83735; 85025; 87086; 87150; 87186; 87493; 96361; 96365; 96366; 96368; 96372; 99285; G0378; J0696; J1630; J1650; J2405; J2765; J3480